=== PATIENT | male | born 1960 | race Caucasian/White ===

== ENCOUNTER 2018-08-15 14:04 | Inpatient (IN) ==
[2018-08-15] MEDS ORDERED: Naloxone 0.4 MG/ML INJ IVP PRN (17:07)
[2018-08-15] MEDS: 0.9 % Sodium Chloride 1,000 ML IVC SCH (17:15)
--- NOTE | 2018-08-15 17:45 | Internal Med History&Physical ---
Date of Encounter: 08/15/18 Time of Encounter: 17:41 Internal Medicine - H&P: HPI Chief complaint: Yellow eyes Admitted From: Hospital to Hospital Transfer Plans for Post Hospital Care: Home History of present illness: Mr. Mcmanus is a 57 year old male with past medical history hypertension not on medications ,who presented to [facility] emergency room with complaints of fatigue, yellow eyes, dark urine and chills. The patient was seen and evaluated at the bedside at this facility. He reported being in his usual state of health till about 4 days ago when he developed extreme fatigue associated with nausea and fever. He reported having worked outside for most of the day at that time and assumed he had heat stroke on that day. However, his symptoms continued to worsen and 2 days ago he noticed his eyes were yellow. He reports associated dark urine. No change in stool consistency or color. He denies any recent outside travel, he denies IV drug use, he does not drink alcohol. He endorses itching A lot, and he does not have any abdominal pain. He reports no one at home hospice in symptoms. He reports recently taking Aleve and Tylenol for the past 5-6 days, but he does not take more than 2 pills per day. He denies any headaches, confusion, focal weakness. He denies anxiety or depression. He has no changes in urinary or bowel habits, he denies any skin rash or easy bruising. He has no pruritus. He has no myalgia or arthralgia. At the outside facility, workup was sent which revealed a normal complete blood count, transaminitis with AST and ALT greater than 3000, hyperbilirubinemia with a total bilirubin 6.7, INR 1.6. Salicylate and acetaminophen levels unremarkable, abdomen CAT scan revealed an edematous gallbladder without any visible stones, no evidence of acute cholecystitis. The patient is currently hemodynamically and clinically stable, he is not in pain. He is full code Past Med Surg Social Fam HX - Past Medical History Medical history: DVT Psychiatric history: anxiety - Past Surgical History Additional surgical history: Left leg varicose vein. skin sarcoma - Social History Smoking Status: Never smoker Smokeless Tobacco Status: No Alcohol use: none Drug use: none Internal Medicine - H&P: Meds 3 Allergy/AdvReac Type Severity Reaction Status Date / Time No Known Allergies Allergy Verified 05/25/17 02:47 All Systems PM: A 10-system review of systems was performed and is negative for pertinent findings except as documented above in the HPI. - Constitutional Constitutional: as per HPI - EENT Eyes: as per HPI Ears: as per HPI Nose, mouth and throat: as per HPI - Cardiovascular Cardiovascular ROS IM: as per HPI - Respiratory Respiratory: as per HPI - Gastrointestinal Gastrointestinal: as per HPI - Musculoskeletal Musculoskeletal ROS IM: as per HPI - Integumentary Integumentary IM: as per HPI - Neurological Neurological ROS: as per HPI - Hematologic/Lymphatic Hematologic/Lymphatic: as per HPI - Constitutional Vitals: Temp Pulse Resp BP Pulse Ox 98.2 F 77 16 148/88 98 08/15/18 16:43 08/15/18 16:43 08/15/18 16:43 08/15/18 16:43 08/15/18 16:43 General appearance: Present: A&O X 3, pleasant, no acute distress Exam: see below - Head Head exam: Present: atraumatic - Eye Eye exam: Present: scleral icterus - ENT ENT exam: Present: mucous membranes moist - Neck Neck exam general surgery: Present: normal inspection - Respiratory Respiratory exam: Present: CTAB - Cardiovascular Cardiovascular exam: Present: RRR, +S1, +S2 - GI/Abdominal GI/Abdominal exam: Present: normal bowel sounds, no peritoneal signs. Absent: guarding, splenomegaly, tenderness - Extremities Exam Extremities exam: Present: warm, radial pulses palpable and symmetrical. Absent : calf tenderness, cyanotic, pedal edema - Neurological Exam Neurological exam: Present: alert, CN II-XII intact, oriented X3, no focal deficits. Absent: pronater drift, facial droop, speech deficit - Skin Skin exam: Present: dry, intact - Assessment and plan (1) Transaminitis Current Visit: Yes Status: Acute Assessment and plan: Likely secondary to hepatitis , this patient had fever preceding symptoms. Patient denies any prescribed medications at home, denies IV drug use, denies multiple sexual partners, denies recent travel. He however endorses eating out a lot Abdomen CT done at outside facility showed gallbladder wall thickening and edema without any stones, associated mild infiltration of fat in the peripatellar region as well as enlarged periportal lymph nodes. Radiology recommends further evaluation with right upper quadrant ultrasound. no clinical evidence of cholecystitis, the patient has no abdominal pain. Aggressive IV fluid hydration Repeat comprehensive metabolic panel stat, repeat INR Send hepatitis A, B, and C panel Continue supportive care Monitor intake and output Gallbladder ultrasound requested Empiric antibiotics with ciprofloxacin and Flagyl, may discontinue if gallbladder ultrasound is unremarkable. Patient has no abdominal pain and has no Oakes's sign on exam Will start on regular diet keep nothing by mouth from midnight for possible ultrasound versus intervention. (2) Hyperbilirubinemia Current Visit: Yes Status: Acute Assessment and plan: As above Total bilirubin 6.7, direct bilirubin 4.6. Continue to monitor liver function tests. Lipase is within normal limit and there is no pancreatic or gallbladder stones on CAT scan. Follow gallbladder ultrasound (3) HTN (hypertension) Current Visit: Yes Status: Chronic Assessment and plan: Reported history of hypertension not on medications Continue to monitor blood pressure. At this time, blood pressure is acceptable Qualifiers: Hypertension type: essential hypertension Qualified Code(s): I10 - Essential (primary) hypertension - Time Spent With Patient Total time spent is greater than 50% in coordination of care (as documented) at patient's floor/unit and/or counseling patient:
[2018-08-15 17:53] LABS: INR 1.6; Prothrombin Time 18.4 Seconds (9.4-12.1)
[2018-08-15] MEDS ORDERED: 0.9 % Sodium Chloride 1,000 ML ONE (17:53)
[2018-08-15 18:25] LABS: Alanine Aminotransferase > 500 Units/L (7-52); Albumin 3.4 g/dL (3.5-5.7); Albumin/Globulin Ratio 1.4 (1.1-2.2); Alkaline Phosphatase 145 Units/L (34-104); Aspartate Amino Transferase 2470 Units/L (13-39); BUN/Creatinine Ratio 13 (6-26); Bilirubin,Total 6.8 mg/dL (0.3-1.0); Blood Urea Nitrogen 11 mg/dL (6-20); Calcium 8.5 mg/dL (8.6-10.3); Carbon Dioxide 23 mEq/L (23-29); Chloride 103 mEq/L (98-107); Glucose 80 mg/dL (70-105); Osmolality,Calculated 276 (280-300); Potassium 4.4 mEq/L (3.5-5.1); Sodium 134 mEq/L (136-145); Total Protein 5.9 g/dL (6.4-8.9); eGFR For Non-African Americans > 60 (> 60)
[2018-08-15 18:26] LABS: Globulin 2.5 g/dL (2.4-3.5); Hepatitis B Core IgM Nonreactive (Nonreactive); Hepatitis C Virus Antibody Nonreactive (Nonreactive)
[2018-08-15 19:50] LABS: Hepatitis A Antibody IgM Reactive (Nonreactive)
[2018-08-15 20:21] LABS: Bilirubin,Urine Large (Negative); Blood,Urine Negative (Negative); Clarity,Urine Clear (Clear); Color,Urine Orange (Yellow); Glucose,Urine (UA) Normal (Normal); Ketones,Urine 15 mg/dL (Negative); Leukocyte Esterase,Urine Trace (Negative); Nitrite,Urine Negative (Negative); Protein,Urine 30 mg/dL (Neg-Trace); Specific Gravity,Urine 1.029 (1.010-1.025); Urobilinogen,Urine Normal (Normal)
[2018-08-15 20:23] LABS: Bacteria,Urine None Seen per hpf (None-Few); Hyaline Casts,Urine None Seen per lpf (None-Few); Squamous Epithelial Cell,Urine Moderate per lpf (None-Few); WBC,Urine 0-3 per hpf (0-3)
[2018-08-15] MEDS: MetroNIDAZOLE 500 MG/100 ML 500 MG/100 ML BAG IVPB SCH (23:42)
[2018-08-16] MEDS: 0.9 % Sodium Chloride 1,000 ML IVC SCH ×3 (04:06→23:59)
[2018-08-16 06:43] LABS: Basophils % 0.8 %; Eosinophils % 0.4 %; Hematocrit 44.1 % (37.5-50.1); Hemoglobin 14.8 g/dL (12.9-16.9); Immature Granulocytes % 0.6 % (0-4); Lymphocytes # 2.6 K/mcL (0.6-4.6); Lymphocytes % 51.5 %; Mean Corpuscular HGB Conc 33.6 g/dL (31.6-35.5); Mean Corpuscular Hemoglobin 30.2 pg (28.0-33.3); Monocytes # 0.6 K/mcL (0.0-1.3); Monocytes % 11.4 %; Neutrophils # 1.8 K/mcL (1.6-8.9); Platelet Count 153 K/mcL (140-400); Segmented Neutrophils % 35.3 %
[2018-08-16 06:49] LABS: INR 1.5; Prothrombin Time 16.6 Seconds (9.4-12.1)
[2018-08-16 06:51] LABS: Activated Partial Thrombo Time 35.4 Seconds (26.0-36.0)
[2018-08-16] MEDS: MetroNIDAZOLE 500 MG/100 ML 500 MG/100 ML BAG IVPB SCH (07:57)
--- NOTE | 2018-08-16 08:22 | General Surgery Consult Note ---
<Mayra Lawrence - Last Filed: 08/16/18 09:09> Date of Encounter: 08/16/18 Time of Encounter: 08:21 Assessment and Plan (1) Acute hepatitis A Current Visit: Yes Status: Acute see above (2) Elevated liver enzymes Current Visit: Yes Status: Acute see above (3) Hyperbilirubinemia Current Visit: Yes Status: Acute see above (4) Abnormal CT of the abdomen Current Visit: Yes Status: Acute CT of the abdomen and pelvis with IV and no oral contrast on 08/15/2018 minutes gallbladder wall thickening in the lumen of the gallbladder appears somewhat heterogenous with increased attenuation material. There is no intrahepatic biliary dilation. No findings of a bowel obstruction, appendix is unremarkable , deliver is unremarkable. His WBC is normal, liver enzymes are elevated asses tody bit total bilirubin. Fractionated bilirubin was not completed. He is positive for acute hepatitis A. GI has been consulted. Do suspect that the mild thickening on the gallbladder is noncontributory; however, an ultrasound of the abdomen has been completed. we will check fractionated biliruben. Further recommendations pending. We will continue to follow along with you at this time. History of Present Illness Consult date: 08/15/18 (Dr. Hugo Yeung) Reason for consult: other Requesting physician: Yamilka Boyd History of present illness: [place] is a 57 year old who was transferred to [facility] on following an ER visit on 08/15/2018. He presented with complaints of nausea, vomiting, diarrhea, dark urine (without painful urination), and fatigue. He denies fever, chills, abdominal pain, constipation. He endorses feelings of acid reflux for 3 days associated with nausea and vomiting. He denies any significant past medical or surgical history. 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 - Social History Smoking Status: Never smoker Smokeless Tobacco Status: No Alcohol use: none Drug use: none Occupational status: employed Current living situation: Home - Independent Activity Level: Independent ambulation Recent Out of Country Travel Within the Last 8 Weeks: No Exposure or Possible Exposure to Illness During Travel: No Medications and Allergies 3 Allergy/AdvReac Type Severity Reaction Status Date / Time No Known Allergies Allergy Verified 05/25/17 02:47 Review of Systems All systems PM: reviewed and no additional remarkable complaints except as stated All systems PM: The remainder of the systems were reviewed and are negative General Surgery Exam Initial Vital Signs Pulse Ox 98 08/15/18 16:40 Vital Signs Temp Pulse Resp BP Pulse Ox 08/16/18 06:51 98.1 F 63 14 148/88 96 08/16/18 04:45 98.3 F 73 16 145/76 96 08/16/18 00:15 98.8 F 85 16 131/79 97 08/15/18 20:24 98.8 F 88 16 151/93 96 08/15/18 16:43 98.2 F 77 16 148/88 98 08/15/18 16:40 98 Intake and Output 08/15/18 08/16/18 08/16/18 23:59 07:59 15:59 Intake Total 1092 / 1092 708 / 708 Output Total 400 / 400 1500 / 1500 Balance 692 / 692 -792 / -792 Intake: IV Fluids 792 / 792 708 / 708 0.9 % Sodium Chloride 1,000 ML 592 / 592 408 / 408 @ 125 mls/hr IVC .Q8H NNAMDI Rx#: [id number] Cipro Premix 400 MG/200 ML 400 200 / 200 200 / 200 mg In 200 ml @ 200 mls/hr IVPB Q12HR NNAMDI Rx#:[id number] Flagyl Premix 500 MG/100 ML 500 100 / 100 mg In 100 ml @ 100 mls/hr IVPB Q8HR NNAMDI Rx#:[id number] Oral 300 / 300 0 / 0 Output: Urine 400 / 400 1500 / 1500 Other: # Bowel Movements 0 Weight 115.303 kg 112.2 kg Blood Glucose* 75 82 Patient Weight 08/16/18 23:59 Weight 112.2 kg VITAL SIGNS: Reviewed. See [facility] GENERAL: In no apparent distress. HEENT: Normocephalic, atraumatic, pupils are equal and reactive, extraocular motions intact, oropharynx is pink and moist, there is no neck adenopathy or JVD noted. CHEST/RESPIRATORY: The thorax is free from signs of trauma. Lung sounds: clear to auscultation, normal respiratory effort CARDIAC: Regular rate and rhythm. Normal S1 and S2, without murmurs, gallops, or rubs. VASCULAR: No Edema. 2+ peripheral pulses. ABDOMEN: soft, nontender, active bowel sounds MUSCULOSKELETAL: Good range of motion of all major joints. Extremities without clubbing, cyanosis or edema. NEUROLOGIC EXAM: Alert and oriented x 3. Speech normal. Follows commands. PSYCHIATRIC: Mood normal. SKIN: No rash or lesions. Slightly icteric Exam Initial Vital Signs Pulse Ox 98 08/15/18 16:40 Results - Labs 08/16/18 06:16 08/15/18 17:20 Abnormal lab results PT 16.6 Seconds (9.4-12.1) H 08/16/18 06:16 Sodium 134 mEq/L (136-145) L 08/15/18 17:20 Calculated Osmolality 276 (280-300) L 08/15/18 17:20 Calcium 8.5 mg/dL (8.6-10.3) L 08/15/18 17:20 Total Bilirubin 6.8 mg/dL (0.3-1.0) H 08/15/18 17:20 AST 2470 Units/L (13-39) H 08/15/18 17:20 ALT > 500 Units/L (7-52) H 08/15/18 17:20 Alkaline Phosphatase 145 Units/L (34-104) H 08/15/18 17:20 Serum Total Protein 5.9 g/dL (6.4-8.9) L 08/15/18 17:20 Albumin 3.4 g/dL (3.5-5.7) L 08/15/18 17:20 Urine Color [place] (Yellow) A 08/15/18 20:06 Ur Specific [place] 1.029 (1.010-1.025) H 08/15/18 20:06 Urine Protein 30 mg/dL (Neg-Trace) H 08/15/18 20:06 Urine Ketones 15 mg/dL (Negative) H 08/15/18 20:06 Urine Bilirubin Large (Negative) H 08/15/18 20:06 Ur Leukocyte Esterase Trace (Negative) H 08/15/18 20:06 Urine Microscopic RBC 3-5 per hpf (0-3) H 08/15/18 20:06 Ur Squamous Epith Cells Moderate per lpf (None-Few) H 08/15/18 20:06 Hepatitis A IgM Ab Reactive (Nonreactive) H 08/15/18 17:20 Diabetes panel 08/15/18 Range/Units 17:20 Sodium 134 L (136-145) mEq/L Potassium 4.4 (3.5-5.1) mEq/L Chloride 103 (98-107) mEq/L Carbon Dioxide 23 (23-29) mEq/L BUN 11 (6-20) mg/dL Creatinine 0.85 (0.70-1.30) mg/dL Glucose 80 (70-105) mg/dL Calcium 8.5 L (8.6-10.3) mg/dL AST 2470 H (13-39) Units/L ALT > 500 H (7-52) Units/L Alkaline Phosphatase 145 H (34-104) Units/L Albumin 3.4 L (3.5-5.7) g/dL Calcium panel 08/15/18 Range/Units 17:20 Calcium 8.5 L (8.6-10.3) mg/dL Albumin 3.4 L (3.5-5.7) g/dL Pituitary panel 08/15/18 Range/Units 17:20 Sodium 134 L (136-145) mEq/L Potassium 4.4 (3.5-5.1) mEq/L Chloride 103 (98-107) mEq/L Carbon Dioxide 23 (23-29) mEq/L BUN 11 (6-20) mg/dL Creatinine 0.85 (0.70-1.30) mg/dL Glucose 80 (70-105) mg/dL Calcium 8.5 L (8.6-10.3) mg/dL Adrenal panel 08/15/18 Range/Units 17:20 Sodium 134 L (136-145) mEq/L Potassium 4.4 (3.5-5.1) mEq/L Chloride 103 (98-107) mEq/L Carbon Dioxide 23 (23-29) mEq/L BUN 11 (6-20) mg/dL Creatinine 0.85 (0.70-1.30) mg/dL Glucose 80 (70-105) mg/dL Calcium 8.5 L (8.6-10.3) mg/dL Total Bilirubin 6.8 H (0.3-1.0) mg/dL AST 2470 H (13-39) Units/L ALT > 500 H (7-52) Units/L Alkaline Phosphatase 145 H (34-104) Units/L Albumin 3.4 L (3.5-5.7) g/dL All other labs normal. - Imaging CT scan - abdomen: report reviewed, image reviewed CT scan - pelvis: report reviewed, image reviewed Consult Discharge Plan - Plan Instructions: Viral Hepatitis A (GEN) Referrals: NONE,PCP [Primary Care Provider] - <Hugo Yeung - Last Filed: 08/16/18 10:48> Date of Encounter: 08/16/18 Assessment and Plan (1) Hyperbilirubinemia Current Visit: Yes Status: Acute (2) Acute hepatitis A Current Visit: Yes Status: Acute (3) Elevated liver enzymes Current Visit: Yes Status: Acute (4) Abnormal CT of the abdomen Current Visit: Yes Status: Acute Review of Systems All systems PM: The remainder of the systems were reviewed and are negative General Surgery Exam Initial Vital Signs Pulse Ox 98 08/15/18 16:40 Exam Initial Vital Signs Pulse Ox 98 08/15/18 16:40 Results - Labs 08/16/18 06:16 08/15/18 17:20 Abnormal lab results PT 16.6 Seconds (9.4-12.1) H 08/16/18 06:16 Sodium 134 mEq/L (136-145) L 08/15/18 17:20 Calculated Osmolality 276 (280-300) L 08/15/18 17:20 Calcium 8.5 mg/dL (8.6-10.3) L 08/15/18 17:20 Total Bilirubin 6.8 mg/dL (0.3-1.0) H 08/15/18 17:20 AST 2470 Units/L (13-39) H 08/15/18 17:20 ALT > 500 Units/L (7-52) H 08/15/18 17:20 Alkaline Phosphatase 145 Units/L (34-104) H 08/15/18 17:20 Serum Total Protein 5.9 g/dL (6.4-8.9) L 08/15/18 17:20 Albumin 3.4 g/dL (3.5-5.7) L 08/15/18 17:20 Urine Color [place] (Yellow) A 08/15/18 20:06 Ur Specific [place] 1.029 (1.010-1.025) H 08/15/18 20:06 Urine Protein 30 mg/dL (Neg-Trace) H 08/15/18 20:06 Urine Ketones 15 mg/dL (Negative) H 08/15/18 20:06 Urine Bilirubin Large (Negative) H 08/15/18 20:06 Ur Leukocyte Esterase Trace (Negative) H 08/15/18 20:06 Urine Microscopic RBC 3-5 per hpf (0-3) H 08/15/18 20:06 Ur Squamous Epith Cells Moderate per lpf (None-Few) H 08/15/18 20:06 Hepatitis A IgM Ab Reactive (Nonreactive) H 08/15/18 17:20 Diabetes panel 08/15/18 Range/Units 17:20 Sodium 134 L (136-145) mEq/L Potassium 4.4 (3.5-5.1) mEq/L Chloride 103 (98-107) mEq/L Carbon Dioxide 23 (23-29) mEq/L BUN 11 (6-20) mg/dL Creatinine 0.85 (0.70-1.30) mg/dL Glucose 80 (70-105) mg/dL Calcium 8.5 L (8.6-10.3) mg/dL AST 2470 H (13-39) Units/L ALT > 500 H (7-52) Units/L Alkaline Phosphatase 145 H (34-104) Units/L Albumin 3.4 L (3.5-5.7) g/dL Calcium panel 08/15/18 Range/Units 17:20 Calcium 8.5 L (8.6-10.3) mg/dL Albumin 3.4 L (3.5-5.7) g/dL Pituitary panel 08/15/18 Range/Units 17:20 Sodium 134 L (136-145) mEq/L Potassium 4.4 (3.5-5.1) mEq/L Chloride 103 (98-107) mEq/L Carbon Dioxide 23 (23-29) mEq/L BUN 11 (6-20) mg/dL Creatinine 0.85 (0.70-1.30) mg/dL Glucose 80 (70-105) mg/dL Calcium 8.5 L (8.6-10.3) mg/dL Adrenal panel 08/15/18 Range/Units 17:20 Sodium 134 L (136-145) mEq/L Potassium 4.4 (3.5-5.1) mEq/L Chloride 103 (98-107) mEq/L Carbon Dioxide 23 (23-29) mEq/L BUN 11 (6-20) mg/dL Creatinine 0.85 (0.70-1.30) mg/dL Glucose 80 (70-105) mg/dL Calcium 8.5 L (8.6-10.3) mg/dL Total Bilirubin 6.8 H (0.3-1.0) mg/dL AST 2470 H (13-39) Units/L ALT > 500 H (7-52) Units/L Alkaline Phosphatase 145 H (34-104) Units/L Albumin 3.4 L (3.5-5.7) g/dL All other labs normal. - Attending Attestation i have reviewed all labs, imaging, and notes. I agree with the above assessment and plan and wish to add the following... 57M with hyperbilirubinemia, elevated AST/ALT and positive hep A; concern for choledocholithiasis and acute cholecystitis on imaging; suspect it may be reactive edema due to inflammation of the liver; no acute surgery will wait US results fractionate the bilirubin will cont to follow at present
[2018-08-16 11:00] LABS: Alanine Aminotransferase > 500 Units/L (7-52); Albumin 3.2 g/dL (3.5-5.7); Albumin/Globulin Ratio 1.4 (1.1-2.2); Alkaline Phosphatase 141 Units/L (34-104); Aspartate Amino Transferase 1484 Units/L (13-39); Bilirubin,Direct 4.6 mg/dL (0.0-0.2); Bilirubin,Indirect 2.4 mg/dL (0.0-1.2); Globulin 2.3 g/dL (2.4-3.5); Total Protein 5.5 g/dL (6.4-8.9)
--- NOTE | 2018-08-16 12:07 | Gastroenterology Consult Note ---
<Mika De La Torre - Last Filed: 08/16/18 12:05> Date of Encounter: 08/16/18 Time of Encounter: 10:30 - Assessment and plan (1) Acute hepatitis A Current Visit: Yes Status: Acute Assessment and plan: On arrival to the ED, TB 6.7, AST >3000, ALT >500, alk phos 149. On admission here, TB 6.8, AST 2470, ALT >500, alk phos 145. Hepatitis A positive. Continue to monitor hepatic panel. Hepatitis A is usually self-limited, - Handwashing (including after using the bathroom, changing diapers, and before preparing or eating foods). - Heating foods appropriately (the virus can be inactivated by heating to >185 F for one minute). Cooked foods can transmit HAV if the temperature during food preparation is inadequate to kill the virus or if food is contaminated after cooking. - Chlorine, iodine, and disinfecting solutions (household bleach 1:100 dilution ) are effective for inactivation of HAV. (2) Hyperbilirubinemia Current Visit: Yes Status: Acute Assessment and plan: Likely secondary to hepatitis A. (3) Transaminitis Current Visit: Yes Status: Acute Assessment and plan: Likely secondary to hepatitis A. - Time Spent With Patient Total time spent is greater than 50% in coordination of care (as documented) at patient's floor/unit and/or counseling patient: GI History of Present Illness - Data of Consult Patient: new to practice Consult date: 08/16/18 Requesting Physician: Kolby See MD - Consult Narrative Reason for consult: Acute hepatic failure History of present illness: Mr. Mcmanus is a 57 year old male with PMHx of HTN who presented to [facility] emergency room with complaints of fatigue, yellow eyes, dark urine and chills. Symptoms started on 08/11 with fatigue, nausea, and fever, Symptoms worsened and 2 days later he noticed his eyes were yellow and had dark urine. He denies any recent outside travel, he denies IV drug use, he does not drink alcohol. He reports eating out "very often". He reports itching and denies any abdominal pain. On arrival to the ED, TB 6.7, AST >3000, ALT >500, alk phos 149. On admission here, TB 6.8, AST 2470, ALT >500, alk phos 145. Hepatitis A positive. CT A/P gallbladder wall thickening in the lumen of the gallbladder appears somewhat heterogenous with increased attenuation material. There is no intrahepatic biliary dilation. No findings of a bowel obstruction, liver is unremarkable. 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 - Social History Smoking Status: Never smoker Smokeless Tobacco Status: No Alcohol use: none Drug use: none - Gastrointestinal Gastrointestinal: Present: as per HPI - Constitutional Constitutional: as per HPI - EENT Eyes: as per HPI Ears: Present: as per HPI Nose, mouth and throat: Present: as per HPI - Cardiovascular Cardiovascular ROS: Present: as per HPI - Respiratory Respiratory IM: Present: as per HPI - Genitourinary Genitourinary: Absent: change in color, Urinary frequency - Neurological ROS Neurological GI: Present: as per HPI - Hematologic/Lymphatic Hematologic/Lymphatic pediatric: Present: as per HPI - Musculoskeletal Musculoskeletal ROS GI: Present: as per HPI - Integumentary Integumentary GI: Present: as per HPI - Psychiatric ROS Psychiatric GI: Present: as per HPI - Endocrine Endocrine IM: Present: as per HPI - Constitutional Vitals: Temp Pulse Resp BP Pulse Ox 98.2 F 71 14 149/92 97 08/16/18 10:10 08/16/18 10:10 08/16/18 10:10 08/16/18 10:10 08/16/18 10:10 General appearance: Present: cooperative, A&O X 3, no acute distress, answers questions appropriately - Head Head exam: Present: atraumatic, normocephalic - Eye Eye exam: Present: scleral icterus - ENT ENT exam: Present: mucous membranes moist - Neck Neck exam general surgery: Present: normal inspection, trachea midline - Respiratory Respiratory exam: Present: CTAB. Absent: rales, rhonchi, wheezes - Cardiovascular Cardiovascular exam: Present: RRR, +S1, +S2 - GI/Abdominal GI/Abdominal exam: Present: normal bowel sounds, soft, no peritoneal signs. Absent: distended, firm, guarding, tenderness - Rectal Rectal exam: Present: deferred - Extremities Exam Extremities exam: Present: warm - Neurological Exam Neurological exam: Present: no focal deficits - Psychiatric Psychiatric exam: Present: normal affect, normal mood - Skin Skin exam: Present: dry, intact, warm Additional comments: Slightly jaundiced Results - Labs CBC & Chem 7: 08/16/18 06:16 08/15/18 17:20 Labs: Last Result Calcium 8.5 mg/dL (8.6-10.3) L 08/15/18 17:20 Entire Visit Hgb 14.8 g/dL (12.9-16.9) D 08/16/18 06:16 Hct 44.1 % (37.5-50.1) 08/16/18 06:16 PT 16.6 Seconds (9.4-12.1) H 08/16/18 06:16 Total Bilirubin 7.0 mg/dL (0.3-1.0) H 08/16/18 10:07 AST 1484 Units/L (13-39) H 08/16/18 10:07 ALT > 500 Units/L (7-52) H 08/16/18 10:07 - ABG ABG results: PT/INR, D-dimer PT 16.6 Seconds (9.4-12.1) H 08/16/18 06:16 Consult Discharge Plan - Plan Instructions: Viral Hepatitis A (GEN) Referrals: Hugo Yeung MD [Non-Partnered Physician] - 09/26/18 9:00 am NONE,PCP [Primary Care Provider] - <Dominick Hopkins - Last Filed: 08/17/18 12:33> Date of Encounter: 08/16/18 - Time Spent With Patient Total time spent is greater than 50% in coordination of care (as documented) at patient's floor/unit and/or counseling patient: GI History of Present Illness - Data of Consult Requesting Physician: Kolby See MD - Consult Narrative History of present illness: Mr. Mcmanus is a 57 year old male - Constitutional Vitals: Temp Pulse Resp BP Pulse Ox 97.4 F L 92 16 172/97 97 08/17/18 10:54 08/17/18 10:54 08/17/18 10:54 08/17/18 10:54 08/17/18 10:54 Results - Labs CBC & Chem 7: 08/17/18 04:07 08/17/18 04:07 Labs: Last Result Calcium 8.1 mg/dL (8.6-10.3) L 08/17/18 04:07 Entire Visit Hgb 14.3 g/dL (12.9-16.9) 08/17/18 04:07 Hct 42.9 % (37.5-50.1) 08/17/18 04:07 PT 16.6 Seconds (9.4-12.1) H 08/16/18 06:16 Total Bilirubin 6.8 mg/dL (0.3-1.0) H 08/17/18 04:07 AST 847 Units/L (13-39) H 08/17/18 04:07 ALT > 500 Units/L (7-52) H 08/17/18 04:07 - ABG ABG results: PT/INR, D-dimer PT 16.6 Seconds (9.4-12.1) H 08/16/18 06:16 - Attending Attestation Patient admitted with acute hepatitis A. Possible underlying ischemic hepatitis as well Supportive management. I have personally performed a face to face evaluation on this patient. I have reviewed and agree with the care plan. History and Exam by me shows:
--- NOTE | 2018-08-16 14:25 | Event Note ---
Date of Encounter: 08/16/18 Time of Encounter: 14:24 US unremarkable for indications of acute surgical intervention. Patient can follow-up with Dr. Yeung as outpatient for possible interval cholecystectomy. Surgery will sign off at this time. Thank you for allowing us to participate in Mr. Mcmanus's care. - Patient Status Disposition: Still a Patient - Discharge Instructions Instructions: Viral Hepatitis A (GEN) Follow Up With: NONE,PCP [Primary Care Provider] - Hugo Yeung MD [Non-Partnered Physician] - 09/26/18 9:00 am - Diet and Activity Activity: increase activity as tolerated Diet: low fat, low cholesterol
--- NOTE | 2018-08-16 15:45 | Internal Med Progress Note ---
Hospitalist Progress Note - Encounter Date of Encounter: 08/16/18 Time of Encounter: 09:00 - Exam Vitals: Temp Pulse Resp BP Pulse Ox 97.6 F 95 16 133/82 97 08/16/18 15:07 08/16/18 15:07 08/16/18 15:07 08/16/18 15:07 08/16/18 15:07 Exam: Gen - Awake, alert, oriented x 3, no acute distress HEENT - NCAT, PERRLA, EOMI, hearing grossly intact, oropharynx benign CV - RRR, normal S1 and S2, no M/R/G, no BLE edema Resp - Normal WOB, CTAB, no W/R/R GI - Soft, NT/ND, no masses, normal bowel sounds, Skin - Warm, dry, no rashes/lesions/ulcers Psych - Normal mood and affect, no depression or anxiety - Assessment and Plan (1) Acute hepatitis A Current Visit: Yes Status: Acute Assessment and Plan: Pt came in with transaminitis and jaundice Hepatitis A positive. Continue supportive care with IV fluids. Daily CMP. GI following and appreciate recs (2) Transaminitis Current Visit: Yes Status: Acute Assessment and Plan: Likely secondary to hepatitis , this patient had fever preceding symptoms. Patient denies any prescribed medications at home, denies IV drug use, denies multiple sexual partners, denies recent travel. He however endorses eating out a lot Abdomen CT done at outside facility showed gallbladder wall thickening and edema without any stones, associated mild infiltration of fat in the peripatellar region as well as enlarged periportal lymph nodes. Continue IV fluids. Surgery recommend outpatient follow up for possible cholecystectomy (3) Hyperbilirubinemia Current Visit: Yes Status: Acute Assessment and Plan: Total bilirubin 6.7, direct bilirubin 4.6. Continue to monitor liver function tests. Lipase is within normal limit and there is no pancreatic or gallbladder stones on CAT scan. Ultrasound of the gall bladder showed gall bladder wall thickening with no cholecystitis. Will follow up outpatient with surgery for possible cholecystectomy (4) HTN (hypertension) Current Visit: Yes Status: Chronic Assessment and Plan: Continue to monitor blood pressure. Stable (5) DVT prophylaxis Current Visit: Yes Status: Acute Assessment and Plan: Heparin sc - Time Spent with Patient Total time spent is greater than 50% in coordination of care (as documented) at patient's floor/unit and/or counseling patient: Internal Medicine: Result - Labs CBC & Chem 7: 08/16/18 06:16 08/15/18 17:20 Labs: Short CBC 08/16/18 Range/Units 06:16 WBC 5.1 (4.3-11.1) K/mcL Hgb 14.8 D (12.9-16.9) g/dL Hct 44.1 (37.5-50.1) % Plt Count 153 (140-400) K/mcL Neutrophils # 1.8 (1.6-8.9) K/mcL BMP 08/15/18 17:20 Sodium 134 L Potassium 4.4 Chloride 103 Carbon Dioxide 23 BUN 11 Creatinine 0.85 Glucose 80 Calcium 8.5 L Liver Function 08/15/18 08/16/18 Range/Units 17:20 10:07 Total Bilirubin 6.8 H 7.0 H (0.3-1.0) mg/dL Direct Bilirubin 4.6 H (0.0-0.2) mg/dL AST 2470 H 1484 H (13-39) Units/L ALT > 500 H > 500 H (7-52) Units/L Alkaline Phosphatase 145 H 141 H (34-104) Units/L Albumin 3.4 L 3.2 L (3.5-5.7) g/dL Urine 08/15/18 Range/Units 20:06 Urine Color [place] A (Yellow) Urine Clarity Clear (Clear) Urine pH 6.0 (5.0-8.0) pH Units Ur Specific [place] 1.029 H (1.010-1.025) Urine Protein 30 H (Neg-Trace) mg/dL Urine Glucose (UA) Normal (Normal) mg/dL - ABG Interpretation ABG results: PT/INR, D-dimer PT 16.6 Seconds (9.4-12.1) H 08/16/18 06:16 - Impressions Impressions Gallbladder Ultrasound 08/16/18 11:30 IMPRESSION: Cholelithiasis with circumferential gallbladder wall thickening but no pericholecystic fluid, biliary dilation or positive sonographic Oakes's sign to indicate acute cholecystitis. The findings are concerning for chronic cholecystitis. This could be confirmed by nuclear medicine hepatobiliary scintigraphy with gallbladder ejection fraction if clinically warranted. D/ / Tunde Rudd MD / Tunde Rdud MD Interpreting Provider: Tunde Rudd MD Consult Discharge Plan - Plan Instructions: Viral Hepatitis A (GEN) Referrals: Hugo Yeung MD [Non-Partnered Physician] - 09/26/18 9:00 am NONE,PCP [Primary Care Provider] - (4) HTN (hypertension) Qualifiers: Hypertension type: essential hypertension Qualified Code(s): I10 - Essential (primary) hypertension
[2018-08-16] MEDS: *HR* Heparin 5,000 UNIT/ML VIAL SQ SCH (16:27)
[2018-08-17 04:35] LABS: Basophils % 0.8 %; Eosinophils % 0.8 %; Hematocrit 42.9 % (37.5-50.1); Hemoglobin 14.3 g/dL (12.9-16.9); Immature Granulocytes % 0.6 % (0-4); Lymphocytes # 2.3 K/mcL (0.6-4.6); Lymphocytes % 47.1 %; Mean Corpuscular HGB Conc 33.3 g/dL (31.6-35.5); Mean Corpuscular Hemoglobin 30.3 pg (28.0-33.3); Mean Corpuscular Volume 90.9 fL (83.0-100.0); Mean Platelet Volume 11.5 fL (9.4-12.4); Monocytes # 0.7 K/mcL (0.0-1.3); Monocytes % 15.1 %; Neutrophils # 1.7 K/mcL (1.6-8.9); Platelet Count 173 K/mcL (140-400); Red Blood Count 4.72 M/mcL (4.19-5.50); Segmented Neutrophils % 35.6 %
[2018-08-17 04:58] LABS: Alanine Aminotransferase > 500 Units/L (7-52); Albumin/Globulin Ratio 1.6 (1.1-2.2); Alkaline Phosphatase 134 Units/L (34-104); Aspartate Amino Transferase 847 Units/L (13-39); BUN/Creatinine Ratio 8 (6-26); Bilirubin,Total 6.8 mg/dL (0.3-1.0); Blood Urea Nitrogen 8 mg/dL (6-20); Calcium 8.1 mg/dL (8.6-10.3); Carbon Dioxide 24 mEq/L (23-29); Chloride 106 mEq/L (98-107); Globulin 1.9 g/dL (2.4-3.5); Glucose 102 mg/dL (70-105); Osmolality,Calculated 279 (280-300); Potassium 4.1 mEq/L (3.5-5.1); Sodium 135 mEq/L (136-145); Total Protein 4.9 g/dL (6.4-8.9); eGFR For Non-African Americans > 60 (> 60)
[2018-08-17 04:59] LABS: Magnesium 1.9 mg/dL (1.6-2.6)
[2018-08-17] MEDS: *HR* Heparin 5,000 UNIT/ML VIAL SQ SCH ×2 (05:33→18:06)
[2018-08-17 05:40] LABS: Platelet Estimate Normal (Normal)
--- NOTE | 2018-08-17 08:08 | Internal Med Progress Note ---
Hospitalist Progress Note - Encounter Date of Encounter: 08/17/18 Time of Encounter: 08:00 - Exam Vitals: Temp Pulse Resp BP Pulse Ox 98.3 F 66 16 154/87 97 08/17/18 07:18 08/17/18 07:18 08/17/18 07:18 08/17/18 07:18 08/17/18 07:18 Exam: Gen - Awake, alert, oriented x 3, no acute distress HEENT - NCAT, PERRLA, EOMI, hearing grossly intact, oropharynx benign CV - RRR, normal S1 and S2, no M/R/G, no BLE edema Resp - Normal WOB, CTAB, no W/R/R GI - Soft, NT/ND, no masses, normal bowel sounds, Skin - Warm, dry, no rashes/lesions/ulcers Psych - Normal mood and affect, no depression or anxiety - Assessment and Plan (1) Acute hepatitis A Current Visit: Yes Status: Acute Assessment and Plan: Pt came in with transaminitis and jaundice Hepatitis A positive. Continue supportive care with IV fluids. Daily CMP. GI following and appreciate recs LFTs trending down (2) Transaminitis Current Visit: Yes Status: Acute Assessment and Plan: Secondary to hepatitis A , this patient had fever preceding symptoms. Patient denies any prescribed medications at home, denies IV drug use, denies multiple sexual partners, denies recent travel. He however endorses eating out a lot Abdomen CT done at outside facility showed gallbladder wall thickening and edema without any stones, associated mild infiltration of fat in the peripatellar region as well as enlarged periportal lymph nodes. Continue IV fluids. Surgery recommend outpatient follow up for possible cholecystectomy (3) Hyperbilirubinemia Current Visit: Yes Status: Acute Assessment and Plan: Total bilirubin 6.7, direct bilirubin 4.6. Continue to monitor liver function tests. Lipase is within normal limit and there is no pancreatic or gallbladder stones on CAT scan. Ultrasound of the gall bladder showed gall bladder wall thickening with no cholecystitis. Will follow up outpatient with surgery for possible cholecystectomy (4) HTN (hypertension) Current Visit: Yes Status: Chronic Assessment and Plan: Continue to monitor blood pressure. Stable (5) DVT prophylaxis Current Visit: Yes Status: Acute Assessment and Plan: Heparin sc - Time Spent with Patient Total time spent is greater than 50% in coordination of care (as documented) at patient's floor/unit and/or counseling patient: Internal Medicine: Result - Labs CBC & Chem 7: 08/17/18 04:07 08/17/18 04:07 Labs: Short CBC 08/17/18 Range/Units 04:07 WBC 4.8 (4.3-11.1) K/mcL Hgb 14.3 (12.9-16.9) g/dL Hct 42.9 (37.5-50.1) % Plt Count 173 (140-400) K/mcL Neutrophils # 1.7 (1.6-8.9) K/mcL BMP 08/17/18 04:07 Sodium 135 L Potassium 4.1 Chloride 106 Carbon Dioxide 24 BUN 8 Creatinine 1.02 Glucose 102 Calcium 8.1 L Liver Function 08/16/18 08/17/18 Range/Units 10:07 04:07 Total Bilirubin 7.0 H 6.8 H (0.3-1.0) mg/dL Direct Bilirubin 4.6 H (0.0-0.2) mg/dL AST 1484 H 847 H (13-39) Units/L ALT > 500 H > 500 H (7-52) Units/L Alkaline Phosphatase 141 H 134 H (34-104) Units/L Albumin 3.2 L 3.0 L (3.5-5.7) g/dL - ABG Interpretation ABG results: PT/INR, D-dimer PT 16.6 Seconds (9.4-12.1) H 08/16/18 06:16 - Impressions Impressions Gallbladder Ultrasound 08/16/18 11:30 IMPRESSION: Cholelithiasis with circumferential gallbladder wall thickening but no pericholecystic fluid, biliary dilation or positive sonographic Oakes's sign to indicate acute cholecystitis. The findings are concerning for chronic cholecystitis. This could be confirmed by nuclear medicine hepatobiliary scintigraphy with gallbladder ejection fraction if clinically warranted. D/ / Tunde Rudd MD / Tunde Rudd MD Interpreting Provider: Tunde Rudd MD Consult Discharge Plan - Plan Instructions: Viral Hepatitis A (GEN) Referrals: Hugo Yeung MD [Non-Partnered Physician] - 09/26/18 9:00 am NONE,PCP [Primary Care Provider] - (4) HTN (hypertension) Qualifiers: Hypertension type: essential hypertension Qualified Code(s): I10 - Essential (primary) hypertension
[2018-08-17] MEDS: 0.9 % Sodium Chloride 1,000 ML IVC SCH ×3 (11:53→18:06)
[2018-08-17] MEDS ORDERED: Acetaminophen 325 MG TABLET PO PRN (15:00)
[2018-08-18] MEDS: 0.9 % Sodium Chloride 1,000 ML IVC SCH (05:01)
[2018-08-18] MEDS: *HR* Heparin 5,000 UNIT/ML VIAL SQ SCH (05:02)
[2018-08-18 06:03] LABS: Basophils % 0.4 %; Eosinophils # 0.1 K/mcL (0.0-0.6); Eosinophils % 1.3 %; Hematocrit 41.9 % (37.5-50.1); Hemoglobin 13.7 g/dL (12.9-16.9); Immature Granulocytes % 0.9 % (0-4); Lymphocytes # 1.6 K/mcL (0.6-4.6); Lymphocytes % 36.4 %; Mean Corpuscular HGB Conc 32.7 g/dL (31.6-35.5); Mean Corpuscular Hemoglobin 29.8 pg (28.0-33.3); Mean Corpuscular Volume 91.3 fL (83.0-100.0); Mean Platelet Volume 11.5 fL (9.4-12.4); Monocytes # 0.6 K/mcL (0.0-1.3); Monocytes % 13.3 %; Neutrophils # 2.2 K/mcL (1.6-8.9); Platelet Count 188 K/mcL (140-400); Red Blood Count 4.59 M/mcL (4.19-5.50); Red Cell Distribution Width 14.2 % (11.5-14.5); Segmented Neutrophils % 47.7 %
[2018-08-18 06:23] LABS: Phosphorous 1.9 mg/dL (2.7-4.5)
[2018-08-18 06:32] LABS: Alanine Aminotransferase > 500 Units/L (7-52); Albumin 2.9 g/dL (3.5-5.7); Albumin/Globulin Ratio 1.6 (1.1-2.2); Alkaline Phosphatase 146 Units/L (34-104); Aspartate Amino Transferase 493 Units/L (13-39); BUN/Creatinine Ratio 8 (6-26); Blood Urea Nitrogen 7 mg/dL (6-20); Calcium 8.4 mg/dL (8.6-10.3); Carbon Dioxide 25 mEq/L (23-29); Chloride 102 mEq/L (98-107); Globulin 1.8 g/dL (2.4-3.5); Glucose 97 mg/dL (70-105); Osmolality,Calculated 270 (280-300); Potassium 4.1 mEq/L (3.5-5.1); Sodium 131 mEq/L (136-145); Total Protein 4.7 g/dL (6.4-8.9); eGFR For Non-African Americans > 60 (> 60)
[2018-08-18 07:56] VITALS: BP 131/84
--- NOTE | 2018-08-18 08:52 | Discharge Summary ---
Orders not resulted at time of discharge: Pending orders 08/15/18 17:20 Hepatitis Delta Antibody Stat 08/19/18 04:00 CBC [Complete Blood Count] [HEME] AM 0400 CMP [Comprehensive Metabolic Panel] AM 0400 Magnesium AM 0400 Phosphorous AM 0400 08/20/18 04:00 CBC [Complete Blood Count] [HEME] AM 0400 CMP [Comprehensive Metabolic Panel] AM 0400 Magnesium AM 0400 Phosphorous AM 0400 08/21/18 04:00 CBC [Complete Blood Count] [HEME] AM 0400 CMP [Comprehensive Metabolic Panel] AM 0400 Magnesium AM 0400 Phosphorous AM 0400 08/22/18 04:00 CBC [Complete Blood Count] [HEME] AM 0400 CMP [Comprehensive Metabolic Panel] AM 0400 Magnesium AM 0400 Phosphorous AM 0400 Date of Encounter: 08/18/18 Time of Encounter: 08:50 - Discharge Diagnosis (1) Acute hepatitis A Priority: Primary Status: Acute Assessment and Plan: a 57 year old male with past medical history hypertension not on medications , who presented to [facility] emergency room with complaints of fatigue, yellow eyes, dark urine and chills. The patient was seen and evaluated at the bedside at this facility. He reported being in his usual state of health till about 4 days ago when he developed extreme fatigue associated with nausea and fever. He reported having worked outside for most of the day at that time and assumed he had heat stroke on that day. However, his symptoms continued to worsen and 2 days ago he noticed his eyes were yellow. He reports associated dark urine. No change in stool consistency or color.Pt came in with transaminitis and jaundice He was assessed with acute hepatic failure due to his elevated LFTs in the thousands and surgery and GI were consulted. CT scan had initially revealed gall bladder wall thickening. On further imaging with ultrasound, gall bladder was unremarkable and no further surgcial intervention was warranted. His Hepatitis A came back positive and he was managed supportively e with IV fluids. His LFTs trended down and with clinical improvement, he was discharged in a stable condition. 35minutes was spent discharging this patient (2) Transaminitis Priority: Secondary Status: Acute (3) Hyperbilirubinemia Priority: Secondary Status: Acute (4) HTN (hypertension) Priority: Secondary Status: Chronic Qualifiers: Hypertension type: essential hypertension Qualified Code(s): I10 - Essential (primary) hypertension (5) DVT prophylaxis Priority: Secondary Status: Acute Hospital course: Mr. Mcmanus is a 57 year old male - Time Spent with Patient Total time spent providing and/or coordinating discharge services: - Discharge Medications Home Medications: No Known Home Drugs 08/16/18 [History] Allergies/Adverse Reactions: 3 Allergy/AdvReac Type Severity Reaction Status Date / Time No Known Allergies Allergy Verified 08/16/18 13:16 Date of admission: 08/15/18 16:00 Primary care physician: PCP NONE Consults: 08/16/18 09:10 Consult to Gastroenterology [CONS] Routine Consulting Provider: Gastroenterology [facility] Reason for Consult: acute hepatic failure Call Completed: Yes - Constitutional Vitals: Temp Pulse Resp BP Pulse Ox 97.9 F 78 15 131/84 97 08/18/18 07:53 08/18/18 07:53 08/18/18 07:53 08/18/18 07:53 08/18/18 07:53 General appearance: Present: A&O X 3, pleasant, no acute distress Exam: Gen - Awake, alert, oriented x 3, no acute distress HEENT - NCAT, PERRLA, EOMI, hearing grossly intact, oropharynx benign CV - RRR, normal S1 and S2, no M/R/G, no BLE edema Resp - Normal WOB, CTAB, no W/R/R GI - Soft, NT/ND, no masses, normal bowel sounds, Skin - Warm, dry, no rashes/lesions/ulcers Psych - Normal mood and affect, no depression or anxiety - Patient Status Disposition: Home, Self-Care - Discharge Instructions Instructions: Viral Hepatitis A (GEN) Follow Up With: Dominick Hopkins MD [Partnered Physician] - (Web request entered. Office will call patient with date and time of appointment. thank you) Hugo Yeung MD [Non-Partnered Physician] - 09/26/18 9:00 am NONE,PCP [Primary Care Provider] - (Patient will check with his previous primary care provider to see if he can get re-established with that office. Thank you)
== END 2018-08-18 11:29 | disposition home or self-care (01) | DRG 441 ==
LOC: 3ANU 16:00
PROVIDERS: ADMIT Internal Medicine; ATTEND Internal Medicine

== ENCOUNTER 2021-04-07 06:33 | Inpatient (IN) ==
[2021-04-07] MEDS ORDERED: CeFAZolin Syr 2,000MG/20 ML 2,000 MG/20 ML SYRINGE IVPB ONE (07:05)
[2021-04-07] MEDS ORDERED: Ringers Solution, Lactated 1,000 ML IVC SCH (07:15)
[2021-04-07] MEDS ORDERED: Promethazine 6.25 MG in Water for inj. (sterile) 20 ML IVPB PRN (07:37)
[2021-04-07] MEDS ORDERED: *HR* HYDROmorphone PF 0.5 MG/0.5 ML SYRINGE IVP PRN (07:37)
[2021-04-07] MEDS ORDERED: *HR* Labetalol 20 MG/4 ML SYRINGE IVP PRN (07:37)
[2021-04-07] MEDS ORDERED: Ondansetron 4 MG/2 ML VIAL IVP PRN ×2 (07:37→15:47)
[2021-04-07] MEDS ORDERED: *HR* HYDROcodone/Acet 7.5/325 mg TABLET PO PRN (07:37)
[2021-04-07 07:41] LABS: Hemoglobin 15.9 g/dL (12.9-16.9); Mean Corpuscular HGB Conc 34.6 g/dL (31.6-35.5); Mean Corpuscular Hemoglobin 31.4 pg (28.0-33.3); Mean Corpuscular Volume 90.9 fL (83.0-100.0); Mean Platelet Volume 11.2 fL (9.4-12.4); Platelet Count 181 K/mcL (140-400); Red Blood Count 5.06 M/mcL (4.19-5.50); Red Cell Distribution Width 11.9 % (11.5-14.5); White Blood Count 6.5 K/mcL (4.3-11.1)
[2021-04-07] MEDS ORDERED: Vancomycin 1,000 MG VIAL ONE (07:50)
[2021-04-07] MEDS ORDERED: *HR* Succinylcholine 200 MG/10 ML VIAL IVP ONE (07:59)
[2021-04-07] MEDS ORDERED: *HR* Midazolam HCl 2 MG/2 ML VIAL ONE (07:59)
[2021-04-07] MEDS ORDERED: Lidocaine -MPF 2% 2 ML VIAL ONE (07:59)
[2021-04-07] MEDS ORDERED: *HR* FentaNYL (PF) 100 MCG/2 ML VIAL ONE (07:59)
[2021-04-07] MEDS ORDERED: *HR* Magnesium Sulfate 1 GM/2 ML VIAL ONE (07:59)
[2021-04-07] MEDS ORDERED: *HR* Rocuronium Bromide 50 MG/5 ML VIAL ONE ×3 (07:59→12:11)
[2021-04-07] MEDS ORDERED: *HR* Phenylephrine 10 MG/ML VIAL ONE (07:59)
[2021-04-07] MEDS ORDERED: *HR* Propofol 200 MG/20 ML VIAL IVP ONE (07:59)
[2021-04-07] MEDS ORDERED: Ondansetron 4 MG/2 ML VIAL ONE (07:59)
[2021-04-07 08:08] LABS: Alanine Aminotransferase 17 Units/L (7-52); Albumin 4.4 g/dL (3.5-5.7); Albumin/Globulin Ratio 1.8 (1.1-2.2); Alkaline Phosphatase 50 Units/L (34-104); Aspartate Amino Transferase 17 Units/L (13-39); BUN/Creatinine Ratio 15 (6-26); Bilirubin,Total 0.8 mg/dL (0.3-1.0); Blood Urea Nitrogen 16 mg/dL (8-23); Calcium 9.6 mg/dL (8.6-10.3); Carbon Dioxide 28 mEq/L (23-29); Chloride 105 mEq/L (98-107); Globulin 2.4 g/dL (2.4-3.5); Glucose 90 mg/dL (70-105); Osmolality,Calculated 287 (280-300); Potassium 4.1 mEq/L (3.5-5.1); Sodium 138 mEq/L (136-145); Total Protein 6.8 g/dL (6.4-8.9); eGFR For African Americans > 60 (> 60); eGFR For Non-African Americans > 60 (> 60)
[2021-04-07] MEDS ORDERED: Acetaminophen IV 1,000 MG/100 ML BAG IVPB ONE (08:49)
[2021-04-07] MEDS ORDERED: EPHEDrine 50 MG/ML VIAL ONE (08:57)
[2021-04-07] MEDS ORDERED: *HR* HYDROMORPHONE 2 MG/ML VIAL ONE (12:15)
[2021-04-07] MEDS ORDERED: Naloxone 0.4 MG/ML INJ IVP PRN (15:47)
[2021-04-07] MEDS: CeFAZolin 2 GM/120 ML BAG IVPB SCH ×2 (17:12→23:35)
[2021-04-07] MEDS: *HR* Heparin 5,000 UNIT/ML VIAL SQ SCH (17:12)
[2021-04-07] MEDS: 0.9 % Sodium Chloride 1,000 ML IVC SCH ×2 (17:13→23:34)
[2021-04-07] MEDS: Acetaminophen IV 1,000 MG/100 ML BAG IVPB SCH ×2 (17:13→23:34)
[2021-04-07] MEDS: Ketorolac 15 MG/ML VIAL IVP PRN (22:03)
[2021-04-08] MEDS: Ketorolac 15 MG/ML VIAL IVP PRN ×2 (04:13→12:14)
[2021-04-08 05:02] LABS: Hematocrit 38.3 % (37.5-50.1); Mean Corpuscular HGB Conc 33.7 g/dL (31.6-35.5); Mean Corpuscular Volume 92.1 fL (83.0-100.0); Mean Platelet Volume 11.9 fL (9.4-12.4); Platelet Count 159 K/mcL (140-400); Red Blood Count 4.16 M/mcL (4.19-5.50); Red Cell Distribution Width 11.9 % (11.5-14.5)
[2021-04-08 05:05] LABS: Hemoglobin 12.9 g/dL (12.9-16.9)
[2021-04-08] MEDS: *HR* Heparin 5,000 UNIT/ML VIAL SQ SCH ×2 (05:15→16:52)
[2021-04-08 05:22] LABS: BUN/Creatinine Ratio 17 (6-26); Blood Urea Nitrogen 17 mg/dL (8-23); Calcium 8.1 mg/dL (8.6-10.3); Carbon Dioxide 24 mEq/L (23-29); Chloride 108 mEq/L (98-107); Glucose 105 mg/dL (70-105); Osmolality,Calculated 286 (280-300); Sodium 137 mEq/L (136-145); eGFR For African Americans > 60 (> 60); eGFR For Non-African Americans > 60 (> 60)
[2021-04-08] MEDS: Acetaminophen IV 1,000 MG/100 ML BAG IVPB SCH ×3 (08:52→23:45)
[2021-04-09 06:36] LABS: Hematocrit 38.4 % (37.5-50.1); Hemoglobin 12.8 g/dL (12.9-16.9); Immature Platelets 8.6 % (1.1-6.1); Mean Corpuscular HGB Conc 33.3 g/dL (31.6-35.5); Mean Corpuscular Hemoglobin 30.4 pg (28.0-33.3); Mean Corpuscular Volume 91.2 fL (83.0-100.0); Mean Platelet Volume 11.5 fL (9.4-12.4); Red Blood Count 4.21 M/mcL (4.19-5.50); Red Cell Distribution Width 11.8 % (11.5-14.5); White Blood Count 7.7 K/mcL (4.3-11.1)
[2021-04-09 06:57] LABS: BUN/Creatinine Ratio 16 (6-26); Blood Urea Nitrogen 14 mg/dL (8-23); Calcium 8.5 mg/dL (8.6-10.3); Carbon Dioxide 27 mEq/L (23-29); Chloride 107 mEq/L (98-107); Glucose 92 mg/dL (70-105); Osmolality,Calculated 286 (280-300); Sodium 138 mEq/L (136-145); eGFR For African Americans > 60 (> 60); eGFR For Non-African Americans > 60 (> 60)
[2021-04-09 07:12] VITALS: BP 132/81
[2021-04-09] MEDS: *HR* Heparin 5,000 UNIT/ML VIAL SQ SCH (09:04)
[2021-04-09] MEDS: Acetaminophen IV 1,000 MG/100 ML BAG IVPB SCH (09:15)
== END 2021-04-09 12:58 | disposition home or self-care (01) | DRG 707 ==
LOC: SAMDAY 06:33 → 3ANU 15:23
PROVIDERS: ADMIT Urology; ATTEND Urology

== ENCOUNTER 2021-11-17 18:02 | Observation (INO) ==
[2021-11-17] MEDS ORDERED: Terbutaline 1 MG/ML VIAL SQ ONE (18:45)
[2021-11-17] MEDS ORDERED: 0.9 % Sodium Chloride 1,000 ML IVC ONE (18:52)
[2021-11-17] MEDS ORDERED: Morphine Sulfate 2 MG/ML SYRINGE IVP ONE (18:52)
[2021-11-17 19:19] LABS: Basophils # 0.1 K/mcL (0.0-0.2); Basophils % 0.5 %; Eosinophils # 0.1 K/mcL (0.0-0.6); Eosinophils % 0.7 %; Hematocrit 45.1 % (37.5-50.1); Hemoglobin 15.1 g/dL (12.9-16.9); Immature Granulocytes % 0.8 % (0-4); Lymphocytes # 1.7 K/mcL (0.6-4.6); Lymphocytes % 16.3 %; Mean Corpuscular HGB Conc 33.5 g/dL (31.6-35.5); Mean Corpuscular Hemoglobin 30.8 pg (28.0-33.3); Mean Platelet Volume 11.4 fL (9.4-12.4); Monocytes # 0.7 K/mcL (0.0-1.3); Monocytes % 7.2 %; Neutrophils # 7.7 K/mcL (1.6-8.9); Platelet Count 198 K/mcL (140-400); Red Cell Distribution Width 12.2 % (11.5-14.5); Segmented Neutrophils % 74.5 %; White Blood Count 10.3 K/mcL (4.3-11.1)
[2021-11-17] MEDS ORDERED: Morphine Sulfate 2 MG/ML SYRINGE IVP STA (19:22)
[2021-11-17 19:31] LABS: Calcium 9.7 mg/dL (8.6-10.3); Potassium 4.2 mEq/L (3.5-5.1)
[2021-11-17] MEDS: Phenylephrine 500 MCG in 0.9 % Sodium Chloride 1 ML INTRACAVER PRN ×2 (19:45→20:00)
[2021-11-17] MEDS ORDERED: Acetaminophen IV 1,000 MG/100 ML BAG IVPB ONE (20:51)
[2021-11-17] MEDS ORDERED: Lidocaine HCL 4 ML Topical Solution (Laryng-O-Jet Kit Sterile Pak) TP ONE (20:59)
[2021-11-17] MEDS ORDERED: Lidocaine 1% 20 ML MDV ONE (21:00)
[2021-11-17] MEDS ORDERED: Ondansetron 4 MG/2 ML VIAL ONE (21:00)
[2021-11-17] MEDS ORDERED: *HR* Succinylcholine 200 MG/10 ML VIAL IVP ONE (21:00)
[2021-11-17] MEDS ORDERED: *HR* Rocuronium Bromide 50 MG/5 ML VIAL ONE (21:00)
[2021-11-17] MEDS ORDERED: Neosporin OINT 15 GM TUBE TP ONE (21:00)
[2021-11-17] MEDS ORDERED: Lidocaine -MPF 2% 5 ML VIAL ONE (21:00)
[2021-11-17] MEDS ORDERED: *HR* Propofol 200 MG/20 ML VIAL IVP ONE (21:01)
[2021-11-17] MEDS ORDERED: *HR* FentaNYL (PF) 100 MCG/2 ML VIAL ONE (21:01)
[2021-11-17] MEDS ORDERED: *HR* Midazolam HCl 2 MG/2 ML VIAL ONE (21:01)
[2021-11-17] MEDS ORDERED: Ondansetron 4 MG/2 ML VIAL IVP PRN (21:10)
[2021-11-17] MEDS ORDERED: *HR* HYDROmorphone PF 0.5 MG/0.5 ML SYRINGE IVP PRN (21:10)
[2021-11-17] MEDS ORDERED: ceFAZolin 2,000 MG in Water for inj. (sterile) 20 ML IVP ONE (21:22)
[2021-11-17] MEDS ORDERED: 0.9 % Sodium Chloride 1,000 ML IVC SCH (22:47)
[2021-11-17] MEDS ORDERED: *HR* HYDROcodone/Acet 5/325 mg TABLET PO PRN (22:47)
[2021-11-17] MEDS ORDERED: Naloxone 0.4 MG/ML INJ IVP PRN (22:47)
[2021-11-17] MEDS ORDERED: *HR* Promethazine 25 MG/ML VIAL IM PRN (22:47)
[2021-11-17] MEDS ORDERED: *HR* Belladonna Alkaloids/Opium 30 MG RECTAL SUPPOSITORY RC PRN (22:47)
[2021-11-18 04:54] VITALS: PULSE 76
[2021-11-18 06:18] LABS: BUN/Creatinine Ratio 16 (6-26); Blood Urea Nitrogen 19 mg/dL (8-23); Carbon Dioxide 23 mEq/L (23-29); Chloride 105 mEq/L (98-107); Glucose 122 mg/dL (70-105); Osmolality,Calculated 286 (280-300); Potassium 4.8 mEq/L (3.5-5.1); Sodium 136 mEq/L (136-145); eGFR For African Americans > 60 (> 60); eGFR For Non-African Americans > 60 (> 60)
[2021-11-18 08:11] VITALS: BP 152/76; TEMP 98.1; O2SAT 93
== END 2021-11-18 09:35 | disposition home or self-care (01) ==
LOC: 3ANU 18:02 → EMEROOARM 18:02 → 3ANU 21:16
PROVIDERS: ADMIT Urology; ATTEND Urology